=== PATIENT | female | born 1985 | race Caucasian/White ===

== ENCOUNTER 2021-01-11 21:30 | Outpatient (CLI) | payer OTHER | END 2021-01-11 23:04 | disposition home or self-care (01) | LOC: GENOP 21:30 | DX: O99.891 Other specified diseases and conditions complicating pregnancy (principal); R10.30 Lower abdominal pain, unspecified; R10.2 Pelvic and perineal pain; Z3A.37 37 weeks gestation of pregnancy | CPT/HCPCS: 81001; 82962; G0463 ==

== ENCOUNTER 2021-01-15 16:36 | Inpatient (IN) | payer OTHER ==
[~2021-01-15] VITALS: Ht 177.8 cm; Wt 152.0 kg
[2021-01-15 17:12] LABS: HEMOGLOBIN 10.2 gm/dl (12.3-15.3); RED BLOOD COUNT 3.03 M/UL (4.00-5.10); WHITE BLOOD COUNT 10.1 K/UL (4.5-11.0)
[2021-01-15] MEDS ORDERED: NOVOLIN N100 UNIT/1 SC ×2 (19:16→19:18)
[2021-01-15] MEDS ORDERED: NOVOLIN R100 UNIT/1 SC ×2 (19:17→19:19)
[2021-01-15] MEDS ORDERED: PYRIDIUM200 MG PO (19:21)
[2021-01-15] MEDS ORDERED: AUGMENTIN 500-500 MG PO (19:22)
[2021-01-15] MEDS ORDERED: ZOFRAN 4 MG TAB4 MG PO (19:22)
[2021-01-16] MEDS ORDERED: COLACE 100MG C100 MG PO (22:28)
[2021-01-16] MEDS ORDERED: IBUPROFEN600 MG PO (22:28)
[2021-01-17 06:11] LABS: HEMOGLOBIN 7.6 gm/dl (12.3-15.3)
== END 2021-01-18 18:49 | disposition home or self-care (01) | DRG 807 ==
LOC: GENOP 16:36 → OB 16:51
PROVIDERS: ADMIT Obstetrics & Gynecology
PROC: 0U7C7ZZ Dilation of Cervix, Via Natural or Artificial Opening (ICD-10-PCS; 2021-01-15)
PROC: 10E0XZZ Delivery of Products of Conception, External Approach (ICD-10-PCS; principal; 2021-01-16)
PROC: 10907ZC Drainage of Amniotic Fluid, Therapeutic from Products of Conception, Via Natural or Artificial Opening (ICD-10-PCS; 2021-01-16)
PROC: 3E033VJ Introduction of Other Hormone into Peripheral Vein, Percutaneous Approach (ICD-10-PCS; 2021-01-16)
DX: O24.424 Gestational diabetes mellitus in childbirth, insulin controlled (principal); Z37.0 Single live birth; O99.02 Anemia complicating childbirth; Z3A.38 38 weeks gestation of pregnancy; Z20.822 Contact with and (suspected) exposure to COVID-19
CPT/HCPCS: 36415; 51702; 82800; 82962; 85014; 85018; 85025; 86900; 86901; 90471; 90715; J2405; J2590; J2795; J3010; J7030; U0002